=== PATIENT | male | born 1950 | race Caucasian/White ===

== ENCOUNTER → 2024-02-05 | Outpatient (CLI) | payer OTHER, MEDICAID, SELFPAY ==
[2024-02-05 10:34] LABS: Basophils % (Auto) 1 % (0-2.5); Eosinophils # (Auto) 0.2 Thou/mm3 (0.0-0.5); Eosinophils % (Auto) 4 % (0-10); Hemoglobin 15.2 g/dL (13.5-16.0); Immature Granulocytes % (Auto) 0 % (0-0); Immature Granulocytes Auto 0.01 Thou/mm3 (0.00-0.00); Lymphocytes # (Auto) 1.2 Thou/mm3 (1.0-4.8); Lymphocytes % (Auto) 24 % (10-50); Mean Corpuscular HGB Conc 33.8 g/dl (31.0-37.0); Mean Corpuscular Hemoglobin 31.8 pg (25.0-35.0); Mean Corpuscular Volume 94 fL (80-100); Monocytes # (Auto) 0.5 Thou/mm3 (0.0-0.8); Monocytes % (Auto) 10 % (0-12); Neutrophils # (Auto) 2.9 Thou/mm3 (1.8-7.7); Neutrophils % (Auto) 61 % (37-80); Nucleated Red Blood Cell % 0 /100 WBC (0); Platelet Count 142 Thou/mm3 (140-440); Red Blood Count 4.78 Miln/mm3 (4.50-5.90); White Blood Count 4.7 Thou/mm3 (3.8-10.6)
[2024-02-05 10:44] LABS: Glucose Estimated Average 117 mg/dL (80-131); Hemoglobin A1C 5.7 % Hgb (4.8-6.0)
[2024-02-05 11:06] LABS: Alanine Aminotransferase 41 U/L (10-49); Albumin, Serum 4.5 gm/dL (3.4-4.8); Albumin/Globulin Ratio 1.9 (1.2-2.2); Alkaline Phosphatase 93 U/L (46-116); Anion Gap 7 (7-16); Aspartate Amino Transferase 32 U/L (0-34); BUN/Creatinine Ratio 21 Ratio (12-20); Bilirubin,Total 0.6 mg/dL (0.3-1.2); Blood Urea Nitrogen 21 mg/dL (9-23); Calcium 9.7 mg/dL (8.3-10.6); Calcium (Corrected) 9.7 mg/dL (8.5-10.1); Cardiac Risk Estimate 4.3 RATIO (4.0-6.7); Chloride 105 mMol/L (98-107); Cholesterol 226 mg/dL (132-200); Globulin 2.4 gm/dL (2.3-3.5); Glucose 128 mg/dL (74-106); HDL Cholesterol 52 mg/dL (40-60); LDL Cholesterol,Calculated 144 mg/dL (0-130); Osmolality,Calculated 284 (275-295); Potassium 4.2 mMol/L (3.4-5.1); Sodium 140 mMol/L (136-145); Total Protein 6.9 gm/dL (5.7-8.2); Triglycerides 148 mg/dL (30-150); eGFR > 60 See Note
== END | disposition home or self-care (01) ==
LOC: COPL 09:16
PROVIDERS: PCP Internal Medicine; Referring Provider Internal Medicine; Visit Provider Internal Medicine
DX: I10 Essential (primary) hypertension (principal); R74.01 Elevation of levels of liver transaminase levels
CPT/HCPCS: 36415; 80053; 80061; 83036; 85025

== ENCOUNTER → 2024-02-25 | Outpatient (CLI) | payer OTHER, MEDICAID, SELFPAY ==
[2024-02-25 09:55] LABS: Glucose Estimated Average 114 mg/dL (80-131); Hemoglobin A1C 5.6 % Hgb (4.8-6.0)
[2024-02-25 10:11] LABS: Cardiac Risk Estimate 4.1 RATIO (4.0-6.7); Cholesterol 198 mg/dL (132-200); HDL Cholesterol 48 mg/dL (40-60); LDL Cholesterol,Calculated 125 mg/dL (0-130); Triglycerides 125 mg/dL (30-150)
== END | disposition home or self-care (01) ==
PROVIDERS: PCP Family Medicine; Referring Provider Nurse Practitioner Family; Visit Provider Nurse Practitioner Family
DX: E78.5 Hyperlipidemia, unspecified (principal); R73.03 Prediabetes
CPT/HCPCS: 36415; 80061; 83036

== ENCOUNTER → 2024-03-04 | Outpatient (CLI) | payer OTHER, MEDICAID, SELFPAY ==
--- NOTE | 2024-03-04 13:30 | XR_ITS ---
Examination: Soft tissue extremity left arm TECHNIQUE: High resolution grayscale sonographic images soft tissue left arm Exam date and time: March 04, 2024 1328 hours INDICATIONS: History biceps tear 2 weeks ago post injury FINDINGS: Retracted biceps tendon with hemorrhage at the retracted biceps tendon site IMPRESSION: Findings most consistent with tear of the long head of the biceps
== END | disposition home or self-care (01) ==
PROVIDERS: PCP Family Medicine; Referring Provider Nurse Practitioner Family; Visit Provider Nurse Practitioner Family
DX: S46.122A Laceration of muscle, fascia and tendon of long head of biceps, left arm, initial encounter (principal); X58.XXXA Exposure to other specified factors, initial encounter
CPT/HCPCS: 76882

== ENCOUNTER → 2024-06-10 | Outpatient (CLI) | payer OTHER, MEDICAID, SELFPAY ==
[2024-06-10 09:51] LABS: Basophils % (Auto) 1 % (0-2.5); Eosinophils # (Auto) 0.3 Thou/mm3 (0.0-0.5); Eosinophils % (Auto) 4 % (0-10); Hematocrit 41.1 % (41.0-53.0); Hemoglobin 13.9 g/dL (13.5-16.0); Immature Granulocytes % (Auto) 0 % (0-0); Immature Granulocytes Auto 0.02 Thou/mm3 (0.00-0.00); Lymphocytes # (Auto) 1.4 Thou/mm3 (1.0-4.8); Lymphocytes % (Auto) 23 % (10-50); Mean Corpuscular HGB Conc 33.8 g/dl (31.0-37.0); Mean Corpuscular Hemoglobin 32.4 pg (25.0-35.0); Mean Corpuscular Volume 96 fL (80-100); Monocytes # (Auto) 0.7 Thou/mm3 (0.0-0.8); Monocytes % (Auto) 12 % (0-12); Neutrophils # (Auto) 3.7 Thou/mm3 (1.8-7.7); Neutrophils % (Auto) 60 % (37-80); Nucleated Red Blood Cell % 0 /100 WBC (0); Platelet Count 161 Thou/mm3 (140-440); RDW Standard Deviation 44.8 fL (35.1-43.9); Red Blood Count 4.29 Miln/mm3 (4.50-5.90); White Blood Count 6.1 Thou/mm3 (3.8-10.6)
[2024-06-10 09:58] LABS: Alanine Aminotransferase 42 U/L (10-49); Albumin, Serum 3.9 gm/dL (3.4-4.8); Albumin/Globulin Ratio 1.6 (1.2-2.2); Alkaline Phosphatase 101 U/L (46-116); Anion Gap 6 (7-16); Aspartate Amino Transferase 28 U/L (0-34); BUN/Creatinine Ratio 41 Ratio (12-20); Bilirubin,Total 0.5 mg/dL (0.3-1.2); Blood Urea Nitrogen 29 mg/dL (9-23); Calcium 9.1 mg/dL (8.3-10.6); Calcium (Corrected) 9.2 mg/dL (8.5-10.1); Carbon Dioxide 27.1 mMol/L (20.0-31.0); Cardiac Risk Estimate 4.4 RATIO (4.0-6.7); Chloride 110 mMol/L (98-107); Cholesterol 192 mg/dL (132-200); Creatinine (Component) 0.7 mg/dL (0.6-1.3); Globulin 2.5 gm/dL (2.3-3.5); Glucose 108 mg/dL (74-106); HDL Cholesterol 44 mg/dL (40-60); LDL Cholesterol,Calculated 117 mg/dL (0-130); Osmolality,Calculated 291 (275-295); Potassium 4.3 mMol/L (3.4-5.1); Sodium 143 mMol/L (136-145); Total Protein 6.4 gm/dL (5.7-8.2); Triglycerides 154 mg/dL (30-150); eGFR > 60 See Note
[2024-06-10 11:26] LABS: Glucose Estimated Average 117 mg/dL (80-131); Hemoglobin A1C 5.7 % Hgb (4.8-6.0)
[2024-06-14 19:48] LABS: PSA, Free 0.85 ng/mL; PSA, Total 17.6 ng/mL (< OR = 4.0)
== END | disposition home or self-care (01) ==
LOC: COPL 08:49
PROVIDERS: PCP Student in an Organized Health Care Education/Training Program; Referring Provider Nurse Practitioner Family; Visit Provider Student in an Organized Health Care Education/Training Program
DX: I10 Essential (primary) hypertension (principal); E78.5 Hyperlipidemia, unspecified; R97.20 Elevated prostate specific antigen [PSA]; R73.03 Prediabetes; Z12.5 Encounter for screening for malignant neoplasm of prostate
CPT/HCPCS: 36415; 80053; 80061; 83036; 84153; 84154; 85025

== ENCOUNTER 2024-06-29 09:12 | Outpatient (RCR) | payer MEDICARE, MEDICAID, SELFPAY ==
--- NOTE | 2024-06-29 09:52 | PTNOTE_ITS ---
PT OP Initial Eval Patient Information Outpatient Physical Therapy Treatment Date: 06/29/24 Visit Reasons: pain in left shoulder Medical Diagnosis: M75.112 Treatment Dx #1: Left Shoulder Pain Treatment Dx #2: Left Shoulder Weakness Start of Care: 06/29/24 Date of Onset: 05/31/24 Smoking Status Smoking Status: Current every day smoker Cessation Counseling Provided: RIVAS was advised that quitting smoking is the single most important factor to protect the health of themselves and their family. Discussed the benefits of quitting smoking with patient. Encouraged patient to quit smoking and provided Cessation assistance materials and resources. Tobacco Use: Cigarette Years smoked: 20 Are you interested in quitting?: No Would you like additional Smoking Cessation Counseling?: No Initial Assessment Subjective: Pt is a 74 y/o male s/p left rotator cuff repair 05/31/24. Pt still has pain (5/10) with activities. Pt has limitation with gripping, lifting, chores, self care, cooking cleaning, and performing recreational activities. Objective: Left Shoulder PROM: all motions are WFL Left Shoulder AROM Flexion: 120 deg Abduction: 85 deg External Rotation: 85 deg Internal Rotation: 60 deg Left Shoulder MMTs: grossly 3-/5 HBB AROM: Thumb at T12 Assessment: Pt demonstrate left shoulder mobility and strength deficits s/p rotator cuff repair leading to difficulty with ADLs. Pt will benefit from physical therapy to increase ROM, strength, and work on stability. Short Term and Longterm Goals 1) Increase left shoulder PROM WNL in 12 wks to prevent frozen shoulder 2) Increase left shoulder AROM WFL in 12 wks to be able to perform lifting activities 3) Increase left shoulder MMTs grossly to 4/5 in 12 wks to be able to perform recreational activities 4) Increase left scapula MMTs grossly to 4-/5 in 12 wks to be able to perform chores 5) Indep with HEP Treatment Plan 1) Manual Therapy 2) Therapeutic Activities 3) Therapeutic Exercises 4) Modalities (ice, heat) Frequency and Duration: 2 x wk for 12 wks Certification Dates: 06/29/24 to 09/28/24 Procedure Charges OP PT Eval Mod Complex 30 minutes: Yes
== END 2024-06-29 23:59 | disposition home or self-care (01) ==
LOC: CPTX 09:12
PROVIDERS: PCP Nurse Practitioner; Referring Provider Nurse Practitioner; Visit Provider Nurse Practitioner
DX: M25.512 Pain in left shoulder (principal); Z98.890 Other specified postprocedural states; Z71.6 Tobacco abuse counseling; F17.210 Nicotine dependence, cigarettes, uncomplicated
CPT/HCPCS: 97162

== ENCOUNTER → 2024-07-01 | Outpatient (BNVA) | payer MEDICARE, MEDICAID, SELFPAY | END | disposition home or self-care (01) | PROVIDERS: PCP Family Medicine; Referring Provider Family Medicine; Visit Provider Urology | DX: N40.1 Benign prostatic hyperplasia with lower urinary tract symptoms (principal); N13.8 Other obstructive and reflux uropathy; C61 Malignant neoplasm of prostate; R97.20 Elevated prostate specific antigen [PSA]; I10 Essential (primary) hypertension; E78.5 Hyperlipidemia, unspecified; R73.03 Prediabetes | CPT/HCPCS: 99212; G0463 ==

== ENCOUNTER → 2024-07-14 | Outpatient (CLI) | payer MEDICARE, MEDICAID, SELFPAY ==
[2024-07-14 10:02] LABS: Anion Gap 4 (7-16); BUN/Creatinine Ratio 29 Ratio (12-20); Blood Urea Nitrogen 20 mg/dL (9-23); Calcium 9.1 mg/dL (8.3-10.6); Chloride 107 mMol/L (98-107); Creatinine (Component) 0.7 mg/dL (0.6-1.3); Glucose 111 mg/dL (74-106); Osmolality,Calculated 281 (275-295); Potassium 4.7 mMol/L (3.4-5.1); Sodium 139 mMol/L (136-145); eGFR > 60 See Note
== END | disposition home or self-care (01) ==
LOC: COPL 08:48
PROVIDERS: PCP Family Medicine; Referring Provider Urology; Visit Provider Urology
DX: C61 Malignant neoplasm of prostate (principal)
CPT/HCPCS: 36415; 80048

== ENCOUNTER 2024-07-28 09:30 | Outpatient (RCR) | payer MEDICARE, MEDICAID, SELFPAY ==
--- NOTE | 2024-07-05 12:07 | PT.ODAYNRPT ---
PT Outpatient Daily Note OP Daily Note Outpatient Physical Therapy Treatment Date: 07/05/24 Visit Reasons: Pain in left shoulder Subjective: Pt's shoulder feels better, however, still weak with activities. Objective: Please see flow chart for list of ther ex performed Assessment: progressing with shoulder flexion and scaption AAROM with less pain, Post ice helped with pain and soreness Plan: Continue with PT Length of Time (minutes) of Treatment: 30 Minutes Procedure Charges Therapeutic Exercise 30 minutes: Yes
--- NOTE | 2024-07-07 11:20 | PTNOTE_ITS ---
PT Outpatient Daily Note OP Daily Note Outpatient Physical Therapy Treatment Date: 07/07/24 Visit Reasons: Pain in left shoulder Subjective: Pt reports he has been working his shoulder, doing HEP. Objective: Please see flow sheet for ther ex list. Assessment: Pt tolerated AAROM interventions with minimal pain. Pt educated to avoid weighted objects overhead, pushing and pulling due to post op timeline. Plan: Continue with poC. Length of Time (minutes) of Treatment: 30 Minutes PROOF TECHNICIAN Service Modifier Method I: Divide the number of min of care provided by the PROOF TECHNICIAN/LEGAL BILLING ANALYST by the total min of care provided then multiply by 100. If greater than 11 percent modifier is required. Method II: Divide the total time of care provided to patient by 10 (round to the nearest whole number) and add 1 min. to set the minimum time requirement. If treatment total was 60 min., then 10% of 6 min PT CQ modifier applied: CQ Modifier applied Procedure Charges Therapeutic Exercise 30 minutes: Yes
--- NOTE | 2024-07-15 11:21 | PT.ODAYNRPT ---
PT Outpatient Daily Note OP Daily Note Outpatient Physical Therapy Treatment Date: 07/15/24 Visit Reasons: Pain in left shoulder Subjective: Pt's shoulder feels much better and notice more flexibility lately. Objective: Please see flow chart for list of ther ex performed Assessment: progressing with shoulder AAROM flexion and scaption near end range with less pain Plan: Continue with PT Length of Time (minutes) of Treatment: 30 Minutes Procedure Charges Therapeutic Exercise 30 minutes: Yes
--- NOTE | 2024-07-19 10:38 | PT.ODAYNRPT ---
PT Outpatient Daily Note OP Daily Note Outpatient Physical Therapy Treatment Date: 07/19/24 Visit Reasons: Pain in left shoulder Subjective: Pt reports flexibility is improving. Objective: Please see flow sheet for ther ex list. Assessment: Pt requires verbl cues and re minders to avoid upper trap recruitment with isometric shoulder strengthening. Plan: Progress per post op protocol. Length of Time (minutes) of Treatment: 30 Minutes Procedure Charges Therapeutic Exercise 30 minutes: Yes
--- NOTE | 2024-07-26 10:09 | PT.ODAYNRPT ---
PT Outpatient Daily Note OP Daily Note Outpatient Physical Therapy Treatment Date: 07/26/24 Visit Reasons: Pain in left shoulder Subjective: Pt reports L shoulder is progressing. Objective: Please see flow sheet for ther ex list. Assessment: Progressed isometric shoulder strengthening using light thera band for walk out exercise, muscle fatigue post exercise but no pain to report. Plan: Assess response to treatment. Length of Time (minutes) of Treatment: 30 Minutes HARDNESS INSPECTOR Service Modifier Method I: Divide the number of min of care provided by the HARDNESS INSPECTOR/WIRE STRIPPER by the total min of care provided then multiply by 100. If greater than 11 percent modifier is required. Method II: Divide the total time of care provided to patient by 10 (round to the nearest whole number) and add 1 min. to set the minimum time requirement. If treatment total was 60 min., then 10% of 6 min PT CQ modifier applied: CQ Modifier applied Procedure Charges Therapeutic Exercise 30 minutes: Yes
--- NOTE | 2024-07-28 10:35 | PT.ODAYNRPT ---
PT Outpatient Daily Note OP Daily Note Outpatient Physical Therapy Treatment Date: 07/28/24 Visit Reasons: Pain in left shoulder Subjective: Pt's shoulder feels so much better and notice he can reach higher overhead. Objective: Please see flow chart for list of ther ex performed Assessment: tolerate exercises with minimal pain and progressing with shoulder AROM in all plane Plan: Continue with PT Length of Time (minutes) of Treatment: 30 Minutes Procedure Charges Therapeutic Exercise 30 minutes: Yes
== END 2024-07-30 23:59 | disposition home or self-care (01) ==
LOC: CPTX 09:30
PROVIDERS: PCP Nurse Practitioner; Referring Provider Nurse Practitioner; Visit Provider Nurse Practitioner
DX: M25.512 Pain in left shoulder (principal); R53.1 Weakness; Z98.890 Other specified postprocedural states
CPT/HCPCS: 97110

== ENCOUNTER → 2024-08-12 | Outpatient (BNVA) | payer MEDICARE, MEDICAID, SELFPAY | END | disposition home or self-care (01) | PROVIDERS: PCP Family Medicine; Referring Provider Family Medicine; Visit Provider Urology | DX: N40.1 Benign prostatic hyperplasia with lower urinary tract symptoms (principal); N13.8 Other obstructive and reflux uropathy; C61 Malignant neoplasm of prostate; I10 Essential (primary) hypertension; E78.00 Pure hypercholesterolemia, unspecified | CPT/HCPCS: 81003; 99212; G0463 ==

== ENCOUNTER 2024-08-17 09:30 | Outpatient (RCR) | payer MEDICARE, MEDICAID, SELFPAY ==
--- NOTE | 2024-08-01 09:50 | PT.ODAYNRPT ---
PT Outpatient Daily Note OP Daily Note Outpatient Physical Therapy Treatment Date: 08/01/24 Visit Reasons: Pain in left shoulder Subjective: Pt's shoulder feels better. Pt mentioned reaching above shoulder height is easier. Pt's shoulder pain increase post HBB AROM exercise after last session Objective: Please see flow chart for list of ther ex performed Assessment: progressing with shoulder AROM in scaption and flexion. Minimal pain reported throughout PT session Plan: Continue with PT Length of Time (minutes) of Treatment: 30 Minutes Procedure Charges Therapeutic Exercise 30 minutes: Yes
--- NOTE | 2024-08-04 10:34 | PT.ODAYNRPT ---
PT Outpatient Daily Note OP Daily Note Outpatient Physical Therapy Treatment Date: 08/04/24 Visit Reasons: Pain in left shoulder Subjective: Pt's shoulder feels better. No new concerns to report. Objective: Please see flow chart for list of ther ex performed Assessment: added PNF pattern with good form noted with minimal shoulder pain reported Plan: Continue with PT Length of Time (minutes) of Treatment: 30 Minutes Procedure Charges Therapeutic Exercise 30 minutes: Yes
--- NOTE | 2024-08-10 11:30 | PT.ODS1RPT ---
PT OP Progress/Discharge Note Date of Service: 08/10/24 Progress Note/DC Note Progress Note/Discharge Note: Progress Note Patient Information Visit Reasons: Pain in left shoulder Medical Diagnosis: M75.112 Treatment Dx #1: Left Shoulder Pain Treatment Dx #2: Left Shoulder Weakness Service Continue Service or Discharge: Continue Service Certification Date Certification Dates: 08/10/24 to 11/10/24 Status Subjective: Pt's shoulder is feeling much better. Pt has been able to perform self care, dress, groom, and light ADLs around the house. Pt still has limitation with reaching behind the back, recreational activities, and lifting overhead. Objective: Left Shoulder AROM Flexion: 160 deg Abduction: 150 deg External Rotation: 90 deg Internal Rotation: 70 deg Left Shoulder MMTs: grossly 3+/5 Left Scapula MMTs: grossly 3/5 HBB AROM: Thumb at T9 Assessment: Pt is progressing with shoulder AROM and strength allowing him to resume light ADLs, chores, and self care activities with less limitation. Pt still exhibit pain with end range AROM in all plane leading to difficulty with certain arm movement. Pt has not met set goals and will continue to benefit from physical therapy to work on strength, stability, and overall mobility; thank you for your referrals. Plan: Continue with PT/POC and add 12 sessions (2 x wk for 6 wks) Procedure Charges Therapeutic Exercise 30 minutes: Yes
--- NOTE | 2024-08-12 12:02 | PT.ODAYNRPT ---
PT Outpatient Daily Note OP Daily Note Outpatient Physical Therapy Treatment Date: 08/12/24 Visit Reasons: Pain in left shoulder Subjective: Pt's shoulder feels much better and stronger. Reaching overhead is getting easier with less pain. Pt has been able to reach behind the back with less limitation Objective: Please see flow chart for list of ther ex perfomed Assessment: Pt demonstrate full shoulder AROM with less pain reported at the end range. Added more scapula strengthening exercises with cues to correct form Plan: Continue with PT Length of Time (minutes) of Treatment: 30 Minutes Procedure Charges Therapeutic Exercise 30 minutes: Yes
--- NOTE | 2024-08-15 10:39 | PT.ODAYNRPT ---
PT Outpatient Daily Note OP Daily Note Outpatient Physical Therapy Treatment Date: 08/15/24 Visit Reasons: Pain in left shoulder Subjective: Pt's shoulder feels good. Pt does not have any concerns. Objective: Please see flow chart for list of ther ex performed Assessment: cues to correct sidelying abduction and ER. Pt is progressing well with increase theraband resistance Plan: Continue with PT Length of Time (minutes) of Treatment: 30 Minutes Procedure Charges Therapeutic Exercise 30 minutes: Yes
--- NOTE | 2024-08-17 11:04 | PT.ODAYNRPT ---
PT Outpatient Daily Note OP Daily Note Outpatient Physical Therapy Treatment Date: 08/17/24 Visit Reasons: Pain in left shoulder Subjective: Pt reports L shoulder is doing better, notices he can reach further behind back. Objective: Please see flow sheet for ther ex list. Assessment: Pt tolerated interventions with good tolerance, ROM continues to improve. Plan: Continue with POC. Length of Time (minutes) of Treatment: 30 Minutes VEGETABLE FARM WORKER Service Modifier Method I: Divide the number of min of care provided by the VEGETABLE FARM WORKER/JEANNE by the total min of care provided then multiply by 100. If greater than 11 percent modifier is required. Method II: Divide the total time of care provided to patient by 10 (round to the nearest whole number) and add 1 min. to set the minimum time requirement. If treatment total was 60 min., then 10% of 6 min PT CQ modifier applied: CQ Modifier applied Procedure Charges Therapeutic Exercise 30 minutes: Yes
== END 2024-08-29 23:59 | disposition home or self-care (01) ==
LOC: CPTX 09:30
PROVIDERS: PCP Nurse Practitioner; Referring Provider Nurse Practitioner; Visit Provider Nurse Practitioner
DX: M25.512 Pain in left shoulder (principal); R53.1 Weakness; Z98.890 Other specified postprocedural states
CPT/HCPCS: 97110

== ENCOUNTER → 2024-08-19 | Outpatient (CLI) | payer MEDICARE, MEDICAID, SELFPAY ==
[2024-08-19 10:10] LABS: Anion Gap 7 (7-16); BUN/Creatinine Ratio 26 Ratio (12-20); Blood Urea Nitrogen 23 mg/dL (9-23); Calcium 9.2 mg/dL (8.3-10.6); Carbon Dioxide 28.8 mMol/L (20.0-31.0); Chloride 107 mMol/L (98-107); Creatinine (Component) 0.9 mg/dL (0.6-1.3); Glucose 103 mg/dL (74-106); Osmolality,Calculated 288 (275-295); Sodium 143 mMol/L (136-145); eGFR > 60 See Note
== END | disposition home or self-care (01) ==
LOC: COPL 09:12
PROVIDERS: PCP Family Medicine; Referring Provider Urology; Visit Provider Urology
DX: Z01.89 Encounter for other specified special examinations (principal)
CPT/HCPCS: 36415; 80048

== ENCOUNTER → 2024-08-26 | Outpatient (BNVA) | payer MEDICARE, MEDICAID, SELFPAY | END | disposition home or self-care (01) | PROVIDERS: PCP Family Medicine; Referring Provider Family Medicine; Visit Provider Urology | DX: N32.89 Other specified disorders of bladder (principal); N40.1 Benign prostatic hyperplasia with lower urinary tract symptoms; N13.8 Other obstructive and reflux uropathy; C61 Malignant neoplasm of prostate; I10 Essential (primary) hypertension; E78.00 Pure hypercholesterolemia, unspecified | CPT/HCPCS: 52000; 81003; 96372; A4217; A4649; C1894; J1580; A9270 ==

== ENCOUNTER → 2024-08-29 | Outpatient (CLI) | payer MEDICARE, MEDICAID, SELFPAY ==
--- NOTE | 2024-08-29 10:00 | XR_ITS ---
Examination: CT abdomen with intravenous contrast CT pelvis with intravenous contrast 2-D coronal reconstructions 2-D sagittal reconstructions Date and time of exam:August 29, 2024 1033 hours Comparison 11/14/2022 INDICATIONS: Diagnosis malignant neoplasm prostate 1.5 years ago, left lower abdominal pain this month. CTDI: vol (mGy) 16 DLP: (mGycm) 996 Technique: Multiple axial sections of the abdomen and pelvis have been obtained. 64 slice high-resolution scanner used. 3 mm axial sections have been obtained, post intravenous injection 60 cc [id number]-370 2-D sagittal, coronal reconstructions obtained. Low dose protocols were performed. One or more of the following dose reduction techniques were used; automated exposure control, adjustment of the mA and/or KV according to patient size, use of iterative reconstruction technique. Findings: Mild enlargement cardiac contour No focal liver or splenic lesions No gallstones No pancreatic or adrenal mass. No hydronephrosis Abdominal aortic calcification no aneurysmal dilatation. Colonic diverticulosis. Normal appendix Prominent sigmoid diverticulitis Transverse prostate dimension 3.6 cm Contracted urinary bladder No abdominal or pelvic lymphadenopathy Diffuse advanced lumbar degenerative disc disease No osteoblastic metastatic lesions IMPRESSION: No interval metastatic disease
== END | disposition home or self-care (01) ==
LOC: CCTX 09:42
PROVIDERS: PCP Family Medicine; Referring Provider Urology; Visit Provider Urology
DX: C61 Malignant neoplasm of prostate (principal)
CPT/HCPCS: 74177; A4649; Q9967

== ENCOUNTER → 2024-08-30 | Outpatient (CLI) | payer MEDICARE, MEDICAID, SELFPAY ==
[2024-08-30 14:07] LABS: B-Type Natriuretic Peptide 42 pg/mL (0-100)
[2024-08-30 14:10] LABS: D-Dimer < 250 ng/mL (<600)
== END | disposition home or self-care (01) ==
LOC: COPL 13:18
PROVIDERS: PCP Family Medicine; Referring Provider Nurse Practitioner Family; Visit Provider Nurse Practitioner Family
DX: R42 Dizziness and giddiness (principal); R07.9 Chest pain, unspecified
CPT/HCPCS: 36415; 83880; 85379

== ENCOUNTER → 2024-09-05 | Outpatient (CLI) | payer MEDICARE, MEDICAID, SELFPAY ==
--- NOTE | 2024-09-05 13:00 | XR_ITS ---
Examination: Bone scan whole body, radioisotope Date and time of exam: September 05, 2024 1258 hours Comparison 11/08/2021 INDICATIONS: Diagnosis malignant neoplasm prostate 2020, osseous metastatic disease on bone scan November 08, 2021 restaging Technique: Study has been performed with intravenous administration of 23.2 mci 99M technetium MDP. Anterior, posterior whole body images are obtained. Images have been obtained including the lower extremities. Findings: Progression of osseous metastatic disease, additional foci increased active accumulation left anterior ribs, multiple, bilateral shoulders, right first anterior rib, sternum, thoracic and lumbar vertebral bodies and in the cervical spine IMPRESSION: Progression of osseous metastatic disease compared with 11/08/2021
== END | disposition home or self-care (01) ==
LOC: SNUC 08:25
PROVIDERS: Referring Provider Urology; Visit Provider Urology
DX: C61 Malignant neoplasm of prostate (principal); C79.9 Secondary malignant neoplasm of unspecified site
CPT/HCPCS: 78306; A9503

== ENCOUNTER → 2024-09-09 | Outpatient (BNVA) | payer MEDICARE, MEDICAID, SELFPAY | END | disposition home or self-care (01) | PROVIDERS: PCP Nurse Practitioner Family; Referring Provider Nurse Practitioner Family; Visit Provider Physician Assistant | DX: C61 Malignant neoplasm of prostate (principal); I10 Essential (primary) hypertension; E78.00 Pure hypercholesterolemia, unspecified | CPT/HCPCS: 99212; G0463 ==

== ENCOUNTER 2024-09-14 13:27 | Outpatient (RCR) | payer MEDICARE, MEDICAID, SELFPAY ==
--- NOTE | 2024-09-14 15:06 | PTNOTE_ITS ---
PT Outpatient Daily Note OP Daily Note Outpatient Physical Therapy Treatment Date: 09/14/24 Visit Reasons: left shoulder pain Subjective: Pt reports L shoulder is doing better, notices that strength has improved. Pt shared that he has thera bands at home and would like to continue with HEP independently. Pt mentioned that he has other health issues he is dealing with so he does not want to continue with PT at this time. Objective: Please see flow sheet for there x list. Assessment: Pt instructed on updated HEP and given printout. Plan: Continue withy POC. Length of Time (minutes) of Treatment: 30 Minutes SENIOR QUALITY ANALYST Service Modifier Method I: Divide the number of min of care provided by the SENIOR QUALITY ANALYST/JEANNE by the total min of care provided then multiply by 100. If greater than 11 percent modifier is required. Method II: Divide the total time of care provided to patient by 10 (round to the nearest whole number) and add 1 min. to set the minimum time requirement. If treatment total was 60 min., then 10% of 6 min PT CQ modifier applied: CQ Modifier applied Procedure Charges Therapeutic Exercise 30 minutes: Yes
== END 2024-09-29 23:59 | disposition home or self-care (01) ==
LOC: CPTX 13:27
PROVIDERS: PCP Nurse Practitioner; Referring Provider Nurse Practitioner; Visit Provider Nurse Practitioner
DX: M25.512 Pain in left shoulder (principal); R53.1 Weakness; Z98.890 Other specified postprocedural states
CPT/HCPCS: 97110

== ENCOUNTER → 2024-10-19 | Outpatient (CLI) | payer MEDICARE, MEDICAID, SELFPAY ==
--- NOTE | 2024-10-19 10:19 | XR_ITS ---
Examination: Knee bilateral, 7 views Technique: Knee AP, lateral, oblique each knee total 6 views, bilateral axial knees single view total 7 views Date and time of exam: October 19, 2024 1022 hours INDICATIONS: Bilateral knee pain beginning 2 years ago. FINDINGS: Bilateral moderate narrowing medial joint spaces No fracture or dislocation involving either knee Bilateral moderate osteoarthritis patellofemoral joints IMPRESSION: Bilateral moderate osteoarthritis medial patellofemoral joint spaces
== END | disposition home or self-care (01) ==
LOC: CDIM 10:09
PROVIDERS: PCP Internal Medicine; Referring Provider Internal Medicine; Visit Provider Internal Medicine
DX: M17.0 Bilateral primary osteoarthritis of knee (principal)
CPT/HCPCS: 73564

== ENCOUNTER → 2025-01-02 | Outpatient (CLI) | payer MEDICARE, MEDICAID, SELFPAY ==
[2025-01-02 11:25] LABS: Albumin, Serum 4.4 gm/dL (3.4-4.8); Anion Gap 8 (7-16); BUN/Creatinine Ratio 26 Ratio (12-20); Blood Urea Nitrogen 23 mg/dL (9-23); Calcium 9.3 mg/dL (8.3-10.6); Calcium (Corrected) 9.3 mg/dL (8.5-10.1); Carbon Dioxide 26.8 mMol/L (20.0-31.0); Chloride 109 mMol/L (98-107); Creatinine (Component) 0.9 mg/dL (0.6-1.3); Glucose 128 mg/dL (74-106); Osmolality,Calculated 292 (275-295); Phosphorous 3.3 mg/dL (2.4-5.1); Potassium 4.4 mMol/L (3.4-5.1); Sodium 144 mMol/L (136-145); eGFR > 60 See Note
== END | disposition home or self-care (01) ==
LOC: COPL 10:21
PROVIDERS: PCP Family Medicine; Referring Provider Family Medicine; Visit Provider Family Medicine
DX: C61 Malignant neoplasm of prostate (principal)
CPT/HCPCS: 36415; 80069

== ENCOUNTER → 2025-01-03 | Outpatient (CLI) | payer MEDICARE, MEDICAID, SELFPAY ==
--- NOTE | 2025-01-03 12:30 | XR_ITS ---
EXAMINATION: MRI pelvis with intravenous contrast TECHNIQUE: Multiple axial sagittal coronal MR images of the pelvis post intravenous administration 60 cc gadolinium INDICATIONS: Diagnosis malignant neoplasm prostate, staging FINDINGS: No findings diagnostic for osteoblastic metastases No free fluid in the pelvis No common iliac external iliac lymphadenopathy Transverse prostate dimension 4.9 cm Normal seminal vesicles No free fluid in the pelvis IMPRESSION: Mild prostatomegaly Normal seminal vesicles No pelvic lymphadenopathy No findings diagnostic for osseous metastatic disease involving the pelvis
== END | disposition home or self-care (01) ==
LOC: SMRI 12:02
PROVIDERS: PCP Student in an Organized Health Care Education/Training Program; Referring Provider Student in an Organized Health Care Education/Training Program; Visit Provider Student in an Organized Health Care Education/Training Program
DX: N40.0 Benign prostatic hyperplasia without lower urinary tract symptoms (principal); C61 Malignant neoplasm of prostate
CPT/HCPCS: 72196; A9577

== ENCOUNTER 2025-02-07 10:05 | Outpatient (AMB) | payer MEDICARE, MEDICAID, SELFPAY ==
--- NOTE | 2025-02-07 10:44 | XR_ITS ---
EXAMINATION: Bilateral knees 2 views Right lateral knee left lateral knee 2 views Bilateral Axuni single view TECHNIQUE: Bilateral AP knees standing single view, bilateral PA knees standing single view flexion Standing right lateral knee left lateral knee 2 views Bilateral Axuni single view total 5 views Date and time: February 07, 2025, 1105 hours INDICATIONS: Bilateral knee pain beginning 6 years ago. FINDINGS: Bilateral severe narrowing, [id number], medial joint spaces Prominent osteopenia Bilateral moderate to advanced osteoarthritis patellofemoral joints No fractures No patellar dislocations IMPRESSION: Bilateral severe narrowing, [id number], medial joint spaces
--- NOTE | 2025-02-07 10:50 | ORTHONT_ITS ---
Vital signs 02/07/25 10:52 Height 1.78 m Height Method Stated Weight 82.157 kg Weight Measurement Method Standing Scale BMI 25.9 BP 145/81 H Blood Pressure Source Automatic Cuff Blood Pressure Location Left Upper Arm Position Sitting Respiration 19 Pulse 60 Pulse Source Monitor Temp 97.3 F Temp Source Temporal Artery Scan Pulse Oximetry (%) 91 L Oxygen Delivery Method Room Air Med/Allergies Allergies & Medications Allergies No Known Allergies Allergy (Verified 02/07/25 10:53) Medication Reconciliation hydrochlorothiazide 25 mg tablet 25 mg PO QDAY 11/19/20 [History Confirmed 02/07] meloxicam 15 mg tablet 1 tab PO DAILY 10/18/21 [History Confirmed 02/07/25] losartan 50 mg tablet 50 mg PO QDAY 07/01/24 [History Confirmed 02/07/25] tamsulosin 0.4 mg capsule 0.4 mg PO QHS 07/01/24 [History Confirmed 02/07/25] gabapentin 100 mg capsule 100 mg PO QDAY 08/12/24 [History Confirmed 02/07/25] ibuprofen 600 mg tablet 600 mg PO TID PRN 08/12/24 [History Confirmed 02/07/25] omeprazole 40 mg capsule,delayed release 40 mg PO QDAY 08/12/24 [History Confirmed 02/07/25] pravastatin 40 mg tablet 40 mg PO QDAY 08/12/24 [History Confirmed 02/07/25] trazodone 50 mg tablet 50 mg PO QHS PRN 08/12/24 [History Confirmed 02/07/25] Exam Exam Patient is in no acute distress and is cooperative with the examination today. Breathing is nonlabored. In no respiratory distress. Bilateral extremities were evaluated and demonstrates sensation intact to light touch. Palpable pedal pulses are present. No significant edema is present. Bilateral hips were examined. The patient has no pain with log roll of the hips. Internal rotation to 30 degrees and external rotation to 30 degrees is painless. Negative FADIR. The left knee was examined. The left knee is in varus alignment. Range of motion from 0-115 degrees. Knee is stable to varus and valgus as well as AP translation with <5mm. Patient has a negative McMurrays. There is no pain with patellofemoral compression and no crepitus noted. The knee is tender to palpation medially. The right knee was also examined. The right knee is in varus alignment. Range of motion from 0-120 degrees. Knee is stable to varus and valgus as well as AP translation with <5mm. Patient has a negative McMurrays. There is no pain with patellofemoral compression and no crepitus noted. The knee is tender to palpation medially. X-rays demonstrate bilateral knee arthritis of moderate severity. These are nonweightbearing x-rays and we will get weightbearing x-rays Assessment and Plan Problem List (1) Degenerative arthritis of knee, bilateral: Status: Acute Plan: Patient is a 74-year-old male with bilateral knee pain and bilateral knee arthritis. We discussed different treatment options. He has failed conservative treatment including multiple injections and anti-inflammatories. We will confirm that he has severe arthritis with weightbearing x-rays and we will likely offer him surgery at the next visit Advanced Care Planning Discussion Advance care planning discussed with:: patient Office Procedures GNS Level of Care Nursing/Assessment Patient Status: Initial/New Patient Nursing Assessment/Reassesment: Medication Reconciliation, Update PMH in EMR and Vital Signs Coordination of Care: Complex Care and Chronic Disease 1-5, Education Complex Pt/Fam, Consent,records obtained, informed consent, 1 Ins Authorization, Lab and Imaging orders, Results/Orders obtained and Staff clarify orders New Patient Charge New Patient Point Assignment: 1124 New Patient Point Charge: DIGITAL COMPOSER Level 4 ([id number]) ND Intake Visit Data Collection New Patient or Established: New Patient (never been to [facility]) Reason for Visit:: BL KNEE PAIN PCP or OBGYN visit in last 3 months: Yes Hx Now: No Do You Feel Safe at Home: Yes Authorities Contacted: N/A Questionairres Past Medical History Past Medical History Have you ever been diagnosed with any of the following: Neurological Problems Seizures: No Head Trauma: Yes Cardiology Problems Heart Murmur: Yes Hypercholesterolemia: Yes Congestive Heart Failure: No Edema: No Cellulitis: No Hypertension: Yes Varicose Veins: No Respiratory Problems Chronic Obstructive Pulmonary Disease (COPD): No Pneumonia: No Tuberculosis: No Sleep Apnea: No Stomache/Intestinal Problems Hepatitis: No Genital/Urinary Problems Renal Disease: No Kidney Stones: No Prostate Cancer: Yes Musculoskeletal Problems Arthritis: Yes Osteoporosis: Yes Degenerative Disk Disease: Yes Fractures: Yes Head,Eye,Nose,Throat Problems Deafness: Yes Endocrine Problems Diabetes Mellitus Type 1: No Diabetes Mellitus Type 2: No Blood Problems Anemia: No Psychologic Problems Depression: No Anxiety: No Other Problems Hospitalization: No Shingles: No Falls: Yes Blood Transfusions: No Blood Transfusion Reaction: No Anesthesia Reactions: No Chemotherapy: No Radiation Therapy: No MRSA: No Chicken Pox: No Measles: No Mumps: Yes Cancer: Yes Surgical History Pacemaker: No Subjective Visit Visit for: new patient and knee Immunization / Flu Flu Vaccine in the Last 12 Months: No Flu Vaccine Exclusion Criteria: No Exclusion Criteria History of Present Illness Chief complaint: Bilateral knee pain Boone is a pleasant 74-year-old male with bilateral knee pain of equal severity in both knees. He had over 6 injections and anti-inflammatories. He has a history of prostate cancer as well. He reports the injection is no longer working as well as before. He is very active Pain Associated signs & symptoms: none Ambulatory data Ambulatory device: none Treatments Number of previous injections: 6 Improvement with previous injections: No Number of Physical Therapy sessions: 3 Improvement with PT: No Improvement with NSAIDS: no Review of Systems Review of Systems: All systems negative unless otherwise noted in HPI.
[2025-02-07 10:52] VITALS: BP 145/81; PULSE 60; RESP 19; TEMP 36.3; O2SAT 91; BMI 25.9
== END 2025-02-07 10:54 | disposition home or self-care (01) ==
LOC: HODSRG 10:05
PROVIDERS: PCP Internal Medicine; Referring Provider Internal Medicine; Supervising Provider Orthopaedic Surgery Adult Reconstructive Orthopaedic Surgery; Visit Provider Orthopaedic Surgery Adult Reconstructive Orthopaedic Surgery
DX: M17.0 Bilateral primary osteoarthritis of knee (principal); M25.562 Pain in left knee; M25.561 Pain in right knee; I10 Essential (primary) hypertension; Z85.46 Personal history of malignant neoplasm of prostate
CPT/HCPCS: 73564; 99204; G0463